=== PATIENT | female | born 1975 | race Caucasian/White ===

== ENCOUNTER 2024-10-31 00:12 | Emergency (ER) | payer OTHER, SELFPAY ==
[2024-10-31 00:12] VITALS: O2SAT 98
[2024-10-31 00:32] VITALS: BP 148/87; PULSE 110; RESP 16; TEMP 37.3; O2SAT 99; BMI 24.0
--- NOTE | 2024-10-31 00:54 | ED.GENADULT ---
HPI - General Adult General Chief complaint: Unspecified Complaint, Adult Stated complaint: back sores Time Seen by Provider: 10/31/24 00:36 History of Present Illness HPI narrative: Patient is a 49-year-old woman who comes in today with infected boil on the posterior aspect of her thorax. This is just to the left of the midline. She has 2 smaller boils as well that are giving her any real problems. The area of induration as on the left side of the midline. She has had no fevers at home she comes in very upset and her pulse is 110 but I do not believe that she is septic. She has no chest pain shortness a breath orthopnea no PND. She has severe pain over the area of induration. She has had no similar issues and no history of MRSA. Related Data Allergies Allergy/AdvReac Type Severity Reaction Status Date / Time acetaminophen (From Percocet) Allergy Verified 10/31/24 00:36 hydrocodone (From Vicodin) Allergy Verified 10/31/24 00:36 oxycodone (From Percocet) Allergy Verified 10/31/24 00:36 Review of Systems Status of ROS: Reports: 10 or more systems reviewed and unremarkable except as noted in History and below Exam Narrative: Exam Narrative: EXAM GENERAL: Patient appears comfortable and well. EYES: No scleral icterus. ENT: Tympanic membranes and oropharynx normal. THYROID: no thyroid nodules or thyromegaly. LYMPH: No supraclavicular or cervical lymphadenopathy. SKIN: Large abscess noted to the left and midline of the posterior thorax. Area dermatitis also noted with 2 other small areas of induration. EXT: No dependent lower extremity pedal edema. HEART: Regular rate and rhythm with no murmurs, rubs, or gallops. LUNGS: Clear to auscultation bilaterally with no crackles or wheezes. ABD: Soft, non tender, non distended. PSYCH: Good eye contact, speech is not pressured. Const: Vital Signs, click to edit/add: Vital Signs - 24 hr 10/31/24 00:32 Temperature 99.1 F Pulse Rate [Left P ulse Oximeter] 110 H Respiratory Rate 16 Blood Pressure [Ri ght Upper Arm] 148/87 H Pulse Oximetry 99 Oxygen Delivery Me thod Room Air Course Course ED Course: After explaining the risks and benefits of procedure I did perform incision and drainage of the abscess. Then packed the wound with half-inch gauze. Care was taken and no evidence of pneumothorax was present. I did circled area of induration and did send a wound culture. I provided 1 g Rocephin and did start her on Keflex. She will remove the wick in the next day or 2 and continue take hot soapy baths until her follow-up in approximately 3 2-3 days with her primary physician. I do note that she has elevated pulse but no significant fever. No signs of sepsis. Tetanus shot updated. Vital Signs Vital signs: Initial Vital Signs Temperature 99.1 F 10/31/24 00:32 Temperature Source Temporal Artery Scan 10/31/24 00:32 Pulse Rate 110 H 10/31/24 00:32 Pulse Rhythm Regular 10/31/24 00:32 Respiratory Rate 16 10/31/24 00:32 Blood Pressure 148/87 H 10/31/24 00:32 Blood Pressure Mean 107 H 10/31/24 00:32 Blood Pressure Position Sitting 10/31/24 00:32 Pulse Oximetry 99 10/31/24 00:32 Oxygen Delivery Method Room Air 10/31/24 00:32 Vital Signs Temperature 99.1 F 10/31/24 00:32 Pulse Rate 110 H 10/31/24 00:32 Respiratory Rate 16 10/31/24 00:32 Blood Pressure 148/87 H 10/31/24 00:32 Pulse Oximetry 99 10/31/24 00:32 Oxygen Delivery Method Room Air 10/31/24 00:32 Temperature 99.1 F 10/31/24 00:32 Pulse Rate 110 H 10/31/24 00:32 Respiratory Rate 16 10/31/24 00:32 Blood Pressure 148/87 H 10/31/24 00:32 Pulse Oximetry 99 10/31/24 00:32 Oxygen Delivery Method Room Air 10/31/24 00:32 Discharge Plan Discharge Clinical Impression: Boil Patient Disposition: Home, Self-Care Condition: Stable Instructions: Abscess (ED) Additional Instructions: Warm soapy best 2 times per day Keflex as directed Tylenol Motrin Warm compresses Follow-up as discussed. Activity Level: No Restrictions Discharge Diet: Regular Stand Alone Forms: My[employer] Info Instructions
[2024-10-31] MEDS: cefTRIAXone 1 GM VIAL IM (01:05)
[2024-10-31] MEDS: TETANUS/DIPHTH/PERTUSSIS 0.5 ML SYRINGE IM (01:08)
[2024-10-31] MEDS: LIDOCAINE 1% 5 ml (pf) 5 ML VIAL 2.1 ML IM (01:10)
--- NOTE | 2024-10-31 01:36 | ED.NURSE ---
pt wound dressed
== END 2024-10-31 01:42 | disposition home or self-care (01) ==
LOC: ED 01:31
PROVIDERS: Emergency Provider Internal Medicine
DX: L02.222 Furuncle of back [any part, except buttock and flank] (principal)
CPT/HCPCS: 10060; 87070; 87186; 90471; 90715; 96372; 99283; 99284; J0696